=== PATIENT | female | born 1975 | race Caucasian/White ===

== ENCOUNTER 2017-10-20 15:15 | Emergency (ER) | payer MEDICAID ==
[~2017-10-20] VITALS: Ht 160 cm; Wt 75.6 kg
[2017-10-20 15:19] VITALS: BP 155/94
[2017-10-20] MEDS ORDERED: HYDROcodone/APAP 5/325 TABLET ONE (16:06)
[2017-10-20] MEDS ORDERED: HYDROcodone/APAP 5/325 TABLET PO ONE (16:30)
== END 2017-10-20 16:09 | disposition left against medical advice (07) ==
LOC: ED 16:03
DX: G89.29 Other chronic pain (principal); M25.551 Pain in right hip
CPT/HCPCS: 99281